=== PATIENT | male | born 1960 | race Caucasian/White ===

== ENCOUNTER 2023-01-08 09:45 | Inpatient (IN) | payer MEDICAID ==
[~2023-01-08] VITALS: Ht 167.6 cm; Wt 36.3 kg
[2023-01-08 09:45] VITALS: BP_SYST 131
[2023-01-08] MEDS ORDERED: NACL 0.9% 1,000 ML IV ONE ×2 (10:00→11:30)
[2023-01-08] MEDS ORDERED: MIRT-114 PO (10:24)
[2023-01-08] MEDS ORDERED: BISA-79 PR (10:24)
[2023-01-08] MEDS ORDERED: MULT-1117 PO (10:24)
[2023-01-08] MEDS ORDERED: ACET325T53 PO (10:24)
[2023-01-08] MEDS ORDERED: HYDR-3917 PO (10:24)
[2023-01-08] MEDS ORDERED: ASCO500T20 PO (10:24)
[2023-01-08] MEDS ORDERED: LACT1TAB14 PO (10:24)
[2023-01-08] MEDS ORDERED: ARGI1POW17 PO (10:24)
[2023-01-08] MEDS ORDERED: ZINC100T2 PO (10:24)
[2023-01-08] MEDS ORDERED: MOM PO (10:24)
[2023-01-08] MEDS ORDERED: ACET325T PO ×2 (10:24)
[2023-01-08] MEDS ORDERED: FLEETMO RC (10:24)
[2023-01-08] MEDS ORDERED: MEGE400O5 PO (10:24)
[2023-01-08] MEDS ORDERED: APIX5TAB4 PO (10:24)
[2023-01-08] MEDS ORDERED: METOPROLOL TARTRATE 5 MG/5 ML VIAL IVP ONE (10:45)
[2023-01-08 10:47] LABS: ANION GAP 23 (5-15); CALCIUM 11.8 mg/dL (8.4-11.0); GLUCOSE 125 mg/dL (70-99)
[2023-01-08 10:56] LABS: BASOPHILS # (AUTO) 0.2 K/uL (0.0-0.2); BASOPHILS % (AUTO) 0.8 % (0.0-2.0); EOSINOPHILS # (AUTO) 0.3 K/uL (0.0-0.4); EOSINOPHILS % (AUTO) 1.2 % (0.0-4.0); HEMATOCRIT 38.7 % (36-54); HEMOGLOBIN 11.2 g/dL (14.0-18.0); LYMPHOCYTES # (AUTO) 6.1 K/uL (1.0-5.5); LYMPHOCYTES % (AUTO) 26.8 % (20.5-51.5); MEAN CORPUSCULAR HEMOGLOBIN 26 pg (27-31); MEAN CORPUSCULAR HGB CONC 29 % (32-36); MEAN CORPUSCULAR VOLUME 90 fL (79.0-98.0); MONOCYTES # (AUTO) 1.1 K/uL (0.0-1.0); NEUTROPHILS # (AUTO) 15.2 K/uL (1.8-7.7); NEUTROPHILS % (AUTO) 66.2 % (40.0-70.0); PLATELET COUNT (AUTO) 407 K/uL (130-430); RED BLOOD CELL COUNT(AUTO) 4.32 MIL/uL (4.2-6.2); RED CELL DISTRIBUTION WIDTH 20.2 % (9.0-15.0); WHITE BLOOD COUNT (AUTO) 22.9 K/uL (4.8-10.8)
[2023-01-08 10:57] LABS: INR 1.2 (0.80-1.20); PROTHROMBIN TIME 12.5 SECS (9.5-12.5)
[2023-01-08 11:00] LABS: CHLORIDE 129 mmol/L (98-107)
[2023-01-08 11:01] LABS: GFR AFRICAN AMERICAN 11 mL/min (>90); UREA NITROGEN, BLOOD 166 mg/dL (8-21)
[2023-01-08 11:07] LABS: ALANINE AMINOTRANSFERASE 21 U/L (12-78); ALBUMIN 3.4 g/dL (3.4-4.8); ASPARTATE AMINOTRANSFERASE 15 U/L (10-37); TOTAL BILIRUBIN 0.4 mg/dL (0.0-1.0)
[2023-01-08] MEDS ORDERED: VANCOMYCIN HCL 1,000 MG in NS 250 ML IV ONE (11:30)
[2023-01-08] MEDS ORDERED: PIPERACILLIN/TAZOBACTAM 2.25 GM in NS 50 ML IV ONE (11:30)
[2023-01-08] MEDS ORDERED: D5/0.45 NS 1,000 ML IV SCH (11:45)
[2023-01-08] MEDS ORDERED: VANCOMYCIN HCL 1000 MG/VIAL IV ONE (11:53)
[2023-01-08] MEDS ORDERED: PIPERACILLIN/TAZOBACTAM 2.25 GM VIAL IV ONE (11:54)
[2023-01-08] MEDS ORDERED: ACETAMINOPHEN 325 MG TABLET PO PRN (13:15)
[2023-01-08] MEDS ORDERED: MINERAL OIL 133 ML ENEMA RC PRN (13:15)
[2023-01-08] MEDS ORDERED: MILK OF MAGNESIA 30 ML UDC PO PRN (13:15)
[2023-01-08] MEDS ORDERED: BISACODYL 5 MG TABLET.DR (DULCOLAX) PO PRN (13:15)
[2023-01-08 17:50] VITALS: BP_SYST 135
[2023-01-08 18:18] VITALS: BP_SYST 135
[2023-01-08] MEDS: cefTRIAXone 1 GM in D5W 50 ML IV SCH (18:22)
[2023-01-08 19:00] VITALS: BP_SYST 122
[2023-01-08 20:00] VITALS: BP_SYST 122
[2023-01-08] MEDS ORDERED: D5W 100 ML IV ONE (20:00)
[2023-01-08] MEDS ORDERED: MEGESTROL ACETATE 400 MG PO SCH (21:00)
[2023-01-08] MEDS: MEGESTROL ACETATE 400 MG/10 ML UDC PO SCH (21:23)
[2023-01-08] MEDS: MIRTAZAPINE 15 MG TABLET PO SCH (21:23)
[2023-01-09] VITALS: BP_SYST 127
[2023-01-09 06:40] LABS: BASOPHILS % (AUTO) 0.2 % (0.0-2.0); EOSINOPHILS # (AUTO) 0.4 K/uL (0.0-0.4); EOSINOPHILS % (AUTO) 2.5 % (0.0-4.0); HEMATOCRIT 31.3 % (36-54); HEMOGLOBIN 9.5 g/dL (14.0-18.0); LYMPHOCYTES # (AUTO) 3.2 K/uL (1.0-5.5); LYMPHOCYTES % (AUTO) 18.4 % (20.5-51.5); MEAN CORPUSCULAR HEMOGLOBIN 27 pg (27-31); MEAN CORPUSCULAR HGB CONC 30 % (32-36); MEAN CORPUSCULAR VOLUME 87 fL (79.0-98.0); MONOCYTES # (AUTO) 0.7 K/uL (0.0-1.0); NEUTROPHILS % (AUTO) 74.9 % (40.0-70.0); PLATELET COUNT (AUTO) 503 K/uL (130-430); RED BLOOD CELL COUNT(AUTO) 3.58 MIL/uL (4.2-6.2); RED CELL DISTRIBUTION WIDTH 19.5 % (9.0-15.0); WHITE BLOOD COUNT (AUTO) 17.3 K/uL (4.8-10.8)
[2023-01-09 06:56] LABS: CALCIUM 9.8 mg/dL (8.4-11.0); CREATININE 6.22 mg/dL (0.55-1.30)
[2023-01-09 08:19] VITALS: BP_SYST 123
[2023-01-09] MEDS ORDERED: NON-FORMULARY MEDICATION (Lactobacillus Acidophilus (Acidophilus) 1 TAB) PO SCH (09:00)
[2023-01-09] MEDS ORDERED: ZINC GLUCONATE PO SCH (09:00)
[2023-01-09] MEDS: MULTIVITAMINS TAB 1 TABLET PO SCH (09:39)
[2023-01-09] MEDS: LACTOBACILLUS RHAMNOSUS GG 1 CAP CAPSULE PO SCH (09:39)
[2023-01-09] MEDS: MEGESTROL ACETATE 400 MG/10 ML UDC PO SCH ×2 (09:39→21:33)
[2023-01-09] MEDS: ASCORBIC ACID 500 MG TABLET PO SCH (09:41)
[2023-01-09] MEDS: D5W 1,000 ML IV SCH ×2 (10:57→21:41)
[2023-01-09 11:30] VITALS: BP_SYST 130
[2023-01-09 15:40] VITALS: BP_SYST 134
[2023-01-09] MEDS: cefTRIAXone 1 GM in D5W 50 ML IV SCH (15:41)
[2023-01-09 20:00] VITALS: BP_SYST 118
[2023-01-09] MEDS: MIRTAZAPINE 15 MG TABLET PO SCH (21:33)
[2023-01-10] VITALS: BP_SYST 143
[2023-01-10] MEDS: D5W 1,000 ML IV SCH ×2 (06:28→16:54)
[2023-01-10 06:58] LABS: BASOPHILS % (AUTO) 0.3 % (0.0-2.0); EOSINOPHILS # (AUTO) 0.4 K/uL (0.0-0.4); EOSINOPHILS % (AUTO) 2.7 % (0.0-4.0); HEMATOCRIT 29.1 % (36-54); HEMOGLOBIN 8.9 g/dL (14.0-18.0); LYMPHOCYTES # (AUTO) 3.6 K/uL (1.0-5.5); MEAN CORPUSCULAR HEMOGLOBIN 26 pg (27-31); MEAN CORPUSCULAR HGB CONC 30 % (32-36); MEAN CORPUSCULAR VOLUME 87 fL (79.0-98.0); MONOCYTES # (AUTO) 0.7 K/uL (0.0-1.0); MONOCYTES % (AUTO) 4.2 % (1.7-9.3); NEUTROPHILS % (AUTO) 69.8 % (40.0-70.0); PLATELET COUNT (AUTO) 459 K/uL (130-430); RED BLOOD CELL COUNT(AUTO) 3.35 MIL/uL (4.2-6.2); RED CELL DISTRIBUTION WIDTH 19.4 % (9.0-15.0); WHITE BLOOD COUNT (AUTO) 15.8 K/uL (4.8-10.8)
[2023-01-10 07:48] LABS: ALBUMIN 2.3 g/dL (3.4-4.8); CALCIUM 9.5 mg/dL (8.4-11.0); CREATININE 5.62 mg/dL (0.55-1.30); TOTAL BILIRUBIN 0.3 mg/dL (0.0-1.0)
[2023-01-10 08:00] VITALS: BP_SYST 141
[2023-01-10 08:03] LABS: TOTAL IRON BIND. CAPACITY 197 ug/dL (250-450)
[2023-01-10] MEDS: MULTIVITAMINS TAB 1 TABLET PO SCH (09:06)
[2023-01-10] MEDS: LACTOBACILLUS RHAMNOSUS GG 1 CAP CAPSULE PO SCH (09:06)
[2023-01-10] MEDS: MEGESTROL ACETATE 400 MG/10 ML UDC PO SCH ×2 (09:07→21:07)
[2023-01-10] MEDS: ASCORBIC ACID 500 MG TABLET PO SCH (09:07)
[2023-01-10 11:50] VITALS: BP_SYST 138
[2023-01-10] MEDS: cefTRIAXone 1 GM in D5W 50 ML IV SCH (14:38)
[2023-01-10 17:13] VITALS: BP_SYST 140
[2023-01-10 19:00] VITALS: BP_SYST 143
[2023-01-10] MEDS: SOD FERRIC GLUC COMPLEX/SUC 125 MG in NS 100 ML IV SCH (19:15)
[2023-01-10 20:00] VITALS: BP_SYST 143
[2023-01-10] MEDS ORDERED: MEGESTROL ACETATE 400 MG/10 ML UDC PO SCH (21:00)
[2023-01-10] MEDS: MIRTAZAPINE 15 MG TABLET PO SCH (21:07)
[2023-01-10] MEDS: MUPIROCIN 2% TOPICAL OINTMENT 22 GM NS SCH (21:07)
[2023-01-11] VITALS: BP_SYST 138
[2023-01-11] MEDS: D5W 1,000 ML IV SCH ×3 (03:46→22:30)
[2023-01-11 07:53] LABS: BASOPHILS % (AUTO) 0.2 % (0.0-2.0); CALCIUM 9.7 mg/dL (8.4-11.0); CREATININE 4.7 mg/dL (0.55-1.30); EOSINOPHILS # (AUTO) 0.2 K/uL (0.0-0.4); EOSINOPHILS % (AUTO) 1.4 % (0.0-4.0); HEMATOCRIT 29.6 % (36-54); LYMPHOCYTES # (AUTO) 2.8 K/uL (1.0-5.5); LYMPHOCYTES % (AUTO) 21.1 % (20.5-51.5); MEAN CORPUSCULAR HEMOGLOBIN 26 pg (27-31); MEAN CORPUSCULAR HGB CONC 30 % (32-36); MEAN CORPUSCULAR VOLUME 87 fL (79.0-98.0); MONOCYTES # (AUTO) 0.6 K/uL (0.0-1.0); MONOCYTES % (AUTO) 4.2 % (1.7-9.3); NEUTROPHILS # (AUTO) 9.7 K/uL (1.8-7.7); NEUTROPHILS % (AUTO) 73.1 % (40.0-70.0); PLATELET COUNT (AUTO) 399 K/uL (130-430); RED BLOOD CELL COUNT(AUTO) 3.42 MIL/uL (4.2-6.2); RED CELL DISTRIBUTION WIDTH 19.3 % (9.0-15.0); WHITE BLOOD COUNT (AUTO) 13.2 K/uL (4.8-10.8)
[2023-01-11 08:00] VITALS: BP_SYST 116
[2023-01-11 08:07] LABS: FOLATE (FOLIC ACID) 6.6 ng/mL (>3.0)
[2023-01-11] MEDS: MUPIROCIN 2% TOPICAL OINTMENT 22 GM NS SCH ×2 (08:32→21:34)
[2023-01-11] MEDS: ASCORBIC ACID 500 MG TABLET PO SCH (08:37)
[2023-01-11] MEDS: MULTIVITAMINS TAB 1 TABLET PO SCH (08:37)
[2023-01-11] MEDS: LACTOBACILLUS RHAMNOSUS GG 1 CAP CAPSULE PO SCH (08:37)
[2023-01-11] MEDS: MEGESTROL ACETATE 400 MG/10 ML UDC PO SCH ×2 (08:38→21:30)
[2023-01-11 11:23] VITALS: BP_SYST 157
[2023-01-11] MEDS: cefTRIAXone 1 GM in D5W 50 ML IV SCH (15:06)
[2023-01-11 15:19] VITALS: BP_SYST 137
[2023-01-11] MEDS: SOD FERRIC GLUC COMPLEX/SUC 125 MG in NS 100 ML IV SCH (18:21)
[2023-01-11 20:00] VITALS: BP_SYST 144
[2023-01-11] MEDS: MIRTAZAPINE 15 MG TABLET PO SCH (21:37)
[2023-01-12 00:07] VITALS: BP_SYST 141
[2023-01-12 07:27] LABS: BASOPHILS % (AUTO) 0.2 % (0.0-2.0); EOSINOPHILS # (AUTO) 0.2 K/uL (0.0-0.4); EOSINOPHILS % (AUTO) 1.4 % (0.0-4.0); HEMATOCRIT 27.3 % (36-54); HEMOGLOBIN 8.8 g/dL (14.0-18.0); LYMPHOCYTES # (AUTO) 2.5 K/uL (1.0-5.5); LYMPHOCYTES % (AUTO) 19.6 % (20.5-51.5); MEAN CORPUSCULAR HEMOGLOBIN 28 pg (27-31); MEAN CORPUSCULAR HGB CONC 32 % (32-36); MEAN CORPUSCULAR VOLUME 85 fL (79.0-98.0); MONOCYTES # (AUTO) 0.6 K/uL (0.0-1.0); MONOCYTES % (AUTO) 4.5 % (1.7-9.3); NEUTROPHILS # (AUTO) 9.3 K/uL (1.8-7.7); NEUTROPHILS % (AUTO) 74.3 % (40.0-70.0); PLATELET COUNT (AUTO) 403 K/uL (130-430); WHITE BLOOD COUNT (AUTO) 12.5 K/uL (4.8-10.8)
[2023-01-12 08:00] VITALS: BP_SYST 134
[2023-01-12 08:13] LABS: CALCIUM 9.2 mg/dL (8.4-11.0); CREATININE 3.92 mg/dL (0.55-1.30)
[2023-01-12] MEDS: D5W 1,000 ML IV SCH ×2 (08:30→17:56)
[2023-01-12] MEDS: MEGESTROL ACETATE 400 MG/10 ML UDC PO SCH ×2 (09:26→22:46)
[2023-01-12] MEDS: MULTIVITAMINS TAB 1 TABLET PO SCH (09:26)
[2023-01-12] MEDS: ASCORBIC ACID 500 MG TABLET PO SCH (09:28)
[2023-01-12] MEDS: LACTOBACILLUS RHAMNOSUS GG 1 CAP CAPSULE PO SCH (09:28)
[2023-01-12] MEDS: MUPIROCIN 2% TOPICAL OINTMENT 22 GM NS SCH ×2 (09:29→23:48)
[2023-01-12 11:20] VITALS: BP_SYST 129
[2023-01-12] MEDS: cefTRIAXone 1 GM in D5W 50 ML IV SCH (14:36)
[2023-01-12 15:34] VITALS: BP_SYST 133
[2023-01-12] MEDS: SOD FERRIC GLUC COMPLEX/SUC 125 MG in NS 100 ML IV SCH (17:56)
[2023-01-12 21:14] VITALS: BP_SYST 116
[2023-01-12] MEDS: MIRTAZAPINE 15 MG TABLET PO SCH (22:45)
[2023-01-13 00:28] VITALS: BP_SYST 125
[2023-01-13] MEDS: D5W 1,000 ML IV SCH ×2 (05:06→18:05)
[2023-01-13 06:54] LABS: BASOPHILS # (AUTO) 0.1 K/uL (0.0-0.2); BASOPHILS % (AUTO) 0.3 % (0.0-2.0); EOSINOPHILS # (AUTO) 0.1 K/uL (0.0-0.4); EOSINOPHILS % (AUTO) 0.5 % (0.0-4.0); HEMATOCRIT 26.6 % (36-54); HEMOGLOBIN 8.3 g/dL (14.0-18.0); LYMPHOCYTES # (AUTO) 3.2 K/uL (1.0-5.5); LYMPHOCYTES % (AUTO) 19.7 % (20.5-51.5); MEAN CORPUSCULAR HEMOGLOBIN 26 pg (27-31); MEAN CORPUSCULAR HGB CONC 31 % (32-36); MEAN CORPUSCULAR VOLUME 84 fL (79.0-98.0); MONOCYTES # (AUTO) 0.7 K/uL (0.0-1.0); MONOCYTES % (AUTO) 4.3 % (1.7-9.3); NEUTROPHILS # (AUTO) 12.3 K/uL (1.8-7.7); NEUTROPHILS % (AUTO) 75.2 % (40.0-70.0); PLATELET COUNT (AUTO) 434 K/uL (130-430); RED BLOOD CELL COUNT(AUTO) 3.16 MIL/uL (4.2-6.2); RED CELL DISTRIBUTION WIDTH 19.2 % (9.0-15.0); WHITE BLOOD COUNT (AUTO) 16.4 K/uL (4.8-10.8)
[2023-01-13 07:13] LABS: CALCIUM 8.8 mg/dL (8.4-11.0); CREATININE 3.99 mg/dL (0.55-1.30)
[2023-01-13] MEDS: LACTOBACILLUS RHAMNOSUS GG 1 CAP CAPSULE PO SCH (08:34)
[2023-01-13] MEDS: MEGESTROL ACETATE 400 MG/10 ML UDC PO SCH ×2 (08:34→20:42)
[2023-01-13] MEDS: ASCORBIC ACID 500 MG TABLET PO SCH (08:35)
[2023-01-13] MEDS: MULTIVITAMINS TAB 1 TABLET PO SCH (08:35)
[2023-01-13] MEDS: MUPIROCIN 2% TOPICAL OINTMENT 22 GM NS SCH ×2 (08:36→20:44)
[2023-01-13] MEDS ORDERED: POTASSIUM CHLORIDE 20 MEQ TAB.PRT.SR PO ONE (11:15)
[2023-01-13 11:20] VITALS: BP_SYST 149
[2023-01-13 15:36] VITALS: BP_SYST 136
[2023-01-13] MEDS: cefTRIAXone 1 GM in D5W 50 ML IV SCH (17:08)
[2023-01-13] MEDS: SOD FERRIC GLUC COMPLEX/SUC 125 MG in NS 100 ML IV SCH (18:17)
[2023-01-13 20:05] VITALS: BP_SYST 146
[2023-01-13] MEDS: MIRTAZAPINE 15 MG TABLET PO SCH (20:43)
[2023-01-14 00:40] VITALS: BP_SYST 127
[2023-01-14 07:03] LABS: CALCIUM 8.9 mg/dL (8.4-11.0); CREATININE 3.84 mg/dL (0.55-1.30)
[2023-01-14 07:13] LABS: BASOPHILS % (AUTO) 0.1 % (0.0-2.0); EOSINOPHILS # (AUTO) 0.1 K/uL (0.0-0.4); EOSINOPHILS % (AUTO) 0.6 % (0.0-4.0); LYMPHOCYTES # (AUTO) 2.9 K/uL (1.0-5.5); LYMPHOCYTES % (AUTO) 16.9 % (20.5-51.5); MEAN CORPUSCULAR HEMOGLOBIN 27 pg (27-31); MEAN CORPUSCULAR HGB CONC 32 % (32-36); MEAN CORPUSCULAR VOLUME 85 fL (79.0-98.0); MONOCYTES # (AUTO) 0.5 K/uL (0.0-1.0); MONOCYTES % (AUTO) 2.9 % (1.7-9.3); NEUTROPHILS # (AUTO) 13.4 K/uL (1.8-7.7); NEUTROPHILS % (AUTO) 79.5 % (40.0-70.0); PLATELET COUNT (AUTO) 437 K/uL (130-430); RED BLOOD CELL COUNT(AUTO) 2.94 MIL/uL (4.2-6.2); RED CELL DISTRIBUTION WIDTH 19.3 % (9.0-15.0); WHITE BLOOD COUNT (AUTO) 16.9 K/uL (4.8-10.8)
[2023-01-14 08:00] VITALS: BP_SYST 124
[2023-01-14] MEDS: LACTOBACILLUS RHAMNOSUS GG 1 CAP CAPSULE PO SCH (08:43)
[2023-01-14] MEDS: ASCORBIC ACID 500 MG TABLET PO SCH (08:43)
[2023-01-14] MEDS: MEGESTROL ACETATE 400 MG/10 ML UDC PO SCH ×2 (08:44→21:30)
[2023-01-14] MEDS: MULTIVITAMINS TAB 1 TABLET PO SCH (08:44)
[2023-01-14] MEDS: MUPIROCIN 2% TOPICAL OINTMENT 22 GM NS SCH ×2 (09:00→21:30)
[2023-01-14 11:20] VITALS: BP_SYST 136
[2023-01-14 15:18] VITALS: BP_SYST 136
[2023-01-14] MEDS: cefTRIAXone 1 GM in D5W 50 ML IV SCH (15:21)
[2023-01-14] MEDS ORDERED: KCL 20 mEq in 100 mL (PREMIX) 100 ML IV SCH (16:30)
[2023-01-14] MEDS: SOD FERRIC GLUC COMPLEX/SUC 125 MG in NS 100 ML IV SCH (17:16)
[2023-01-14] MEDS: D5W 1,000 ML IV SCH (17:17)
[2023-01-14 19:00] VITALS: BP_SYST 126
[2023-01-14] MEDS ORDERED: POTASSIUM CHLORIDE 40 MEQ, LIDOCAINE JECT 2% PF 100 MG 50 MG in NS 250 ML IV ONE (19:00)
[2023-01-14 20:00] VITALS: BP_SYST 126
[2023-01-14] MEDS: MIRTAZAPINE 15 MG TABLET PO SCH (21:31)
[2023-01-15 00:48] VITALS: BP_SYST 128
[2023-01-15 07:02] LABS: CALCIUM 9.2 mg/dL (8.4-11.0); CREATININE 3.6 mg/dL (0.55-1.30)
[2023-01-15 07:04] LABS: BASOPHILS % (AUTO) 0.4 % (0.0-2.0); EOSINOPHILS # (AUTO) 0.2 K/uL (0.0-0.4); EOSINOPHILS % (AUTO) 1.4 % (0.0-4.0); HEMATOCRIT 25.4 % (36-54); HEMOGLOBIN 7.9 g/dL (14.0-18.0); LYMPHOCYTES # (AUTO) 2.5 K/uL (1.0-5.5); LYMPHOCYTES % (AUTO) 17.8 % (20.5-51.5); MEAN CORPUSCULAR HEMOGLOBIN 27 pg (27-31); MEAN CORPUSCULAR HGB CONC 31 % (32-36); MEAN CORPUSCULAR VOLUME 86 fL (79.0-98.0); MONOCYTES # (AUTO) 0.6 K/uL (0.0-1.0); MONOCYTES % (AUTO) 4.3 % (1.7-9.3); NEUTROPHILS # (AUTO) 10.6 K/uL (1.8-7.7); NEUTROPHILS % (AUTO) 76.1 % (40.0-70.0); PLATELET COUNT (AUTO) 471 K/uL (130-430); RED BLOOD CELL COUNT(AUTO) 2.95 MIL/uL (4.2-6.2); RED CELL DISTRIBUTION WIDTH 20.1 % (9.0-15.0); WHITE BLOOD COUNT (AUTO) 13.9 K/uL (4.8-10.8)
[2023-01-15 08:00] VITALS: BP_SYST 135
[2023-01-15] MEDS: MEGESTROL ACETATE 400 MG/10 ML UDC PO SCH ×2 (10:21→21:16)
[2023-01-15] MEDS: ASCORBIC ACID 500 MG TABLET PO SCH (10:21)
[2023-01-15] MEDS: MULTIVITAMINS TAB 1 TABLET PO SCH (10:22)
[2023-01-15] MEDS: LACTOBACILLUS RHAMNOSUS GG 1 CAP CAPSULE PO SCH (10:22)
[2023-01-15] MEDS: D5W 1,000 ML IV SCH ×2 (10:31→20:50)
[2023-01-15] MEDS: MUPIROCIN 2% TOPICAL OINTMENT 22 GM NS SCH (10:32)
[2023-01-15 11:21] VITALS: BP_SYST 140
[2023-01-15 15:25] VITALS: BP_SYST 137
[2023-01-15] MEDS: SOD FERRIC GLUC COMPLEX/SUC 125 MG in NS 100 ML IV SCH (18:55)
[2023-01-15 20:00] VITALS: BP_SYST 142
[2023-01-15] MEDS: MIRTAZAPINE 15 MG TABLET PO SCH (21:16)
[2023-01-16 07:15] LABS: INR 1.1 (0.80-1.20); PROTHROMBIN TIME 10.8 SECS (9.5-12.5)
[2023-01-16 07:18] LABS: BASOPHILS % (AUTO) 0.3 % (0.0-2.0); EOSINOPHILS # (AUTO) 0.2 K/uL (0.0-0.4); EOSINOPHILS % (AUTO) 1.2 % (0.0-4.0); HEMOGLOBIN 8.9 g/dL (14.0-18.0); LYMPHOCYTES # (AUTO) 2.1 K/uL (1.0-5.5); LYMPHOCYTES % (AUTO) 15.1 % (20.5-51.5); MEAN CORPUSCULAR HEMOGLOBIN 27 pg (27-31); MEAN CORPUSCULAR HGB CONC 31 % (32-36); MEAN CORPUSCULAR VOLUME 87 fL (79.0-98.0); MONOCYTES # (AUTO) 0.6 K/uL (0.0-1.0); MONOCYTES % (AUTO) 4.6 % (1.7-9.3); NEUTROPHILS % (AUTO) 78.8 % (40.0-70.0); PLATELET COUNT (AUTO) 527 K/uL (130-430); RED BLOOD CELL COUNT(AUTO) 3.33 MIL/uL (4.2-6.2); RED CELL DISTRIBUTION WIDTH 20.5 % (9.0-15.0)
[2023-01-16 07:55] LABS: CALCIUM 9.4 mg/dL (8.4-11.0); CREATININE 2.9 mg/dL (0.55-1.30)
[2023-01-16 08:00] VITALS: BP_SYST 156
[2023-01-16] MEDS: MULTIVITAMINS TAB 1 TABLET PO SCH (08:32)
[2023-01-16] MEDS: MEGESTROL ACETATE 400 MG/10 ML UDC PO SCH ×2 (08:32→21:00)
[2023-01-16] MEDS: ASCORBIC ACID 500 MG TABLET PO SCH (08:32)
[2023-01-16] MEDS: LACTOBACILLUS RHAMNOSUS GG 1 CAP CAPSULE PO SCH (08:32)
[2023-01-16] MEDS: BALSAM PERU/CASTOR OIL 56.7 GM OINT...G. TP SCH (09:00)
[2023-01-16] MEDS ORDERED: CEFAZOLIN 1 GM IVPB PREMIX 50 ML IV ONE (10:00)
[2023-01-16] MEDS: D5W 1,000 ML IV SCH ×2 (11:10→22:53)
[2023-01-16 11:21] VITALS: BP_SYST 127
[2023-01-16] MEDS ORDERED: MEPERIDINE 50 MG/ML VIAL ONE (11:51)
[2023-01-16] MEDS ORDERED: MIDAZOLAM HCL 5 MG/5 ML VIAL ONE (11:51)
[2023-01-16 15:23] VITALS: BP_SYST 137
[2023-01-16] MEDS: SOD FERRIC GLUC COMPLEX/SUC 125 MG in NS 100 ML IV SCH (18:06)
[2023-01-16 20:00] VITALS: BP_SYST 134
[2023-01-16] MEDS: MIRTAZAPINE 15 MG TABLET PO SCH (21:00)
[2023-01-17 01:23] VITALS: BP_SYST 128
[2023-01-17 08:00] VITALS: BP_SYST 150
[2023-01-17] MEDS: BALSAM PERU/CASTOR OIL 56.7 GM OINT...G. TP SCH (09:43)
[2023-01-17] MEDS: MEGESTROL ACETATE 400 MG/10 ML UDC PO SCH ×2 (09:50→21:35)
[2023-01-17] MEDS: ASCORBIC ACID 500 MG TABLET PO SCH (09:51)
[2023-01-17] MEDS: MULTIVITAMINS TAB 1 TABLET PO SCH (09:51)
[2023-01-17] MEDS: LACTOBACILLUS RHAMNOSUS GG 1 CAP CAPSULE PO SCH (09:51)
[2023-01-17 10:54] LABS: BASOPHILS % (AUTO) 0.4 % (0.0-2.0); EOSINOPHILS # (AUTO) 0.2 K/uL (0.0-0.4); EOSINOPHILS % (AUTO) 1.7 % (0.0-4.0); HEMATOCRIT 30.2 % (36-54); HEMOGLOBIN 9.4 g/dL (14.0-18.0); LYMPHOCYTES # (AUTO) 2.4 K/uL (1.0-5.5); LYMPHOCYTES % (AUTO) 18.6 % (20.5-51.5); MEAN CORPUSCULAR HEMOGLOBIN 27 pg (27-31); MEAN CORPUSCULAR HGB CONC 31 % (32-36); MEAN CORPUSCULAR VOLUME 87 fL (79.0-98.0); MONOCYTES # (AUTO) 0.6 K/uL (0.0-1.0); MONOCYTES % (AUTO) 4.9 % (1.7-9.3); NEUTROPHILS # (AUTO) 9.6 K/uL (1.8-7.7); NEUTROPHILS % (AUTO) 74.4 % (40.0-70.0); PLATELET COUNT (AUTO) 573 K/uL (130-430); RED BLOOD CELL COUNT(AUTO) 3.49 MIL/uL (4.2-6.2); RED CELL DISTRIBUTION WIDTH 20.9 % (9.0-15.0); WHITE BLOOD COUNT (AUTO) 12.9 K/uL (4.8-10.8)
[2023-01-17 11:09] LABS: CALCIUM 9.5 mg/dL (8.4-11.0); CREATININE 2.55 mg/dL (0.55-1.30)
[2023-01-17 11:22] VITALS: BP_SYST 143
[2023-01-17] MEDS: D5W 1,000 ML IV SCH ×2 (12:50→21:35)
[2023-01-17 15:33] VITALS: BP_SYST 139
[2023-01-17] MEDS: SOD FERRIC GLUC COMPLEX/SUC 125 MG in NS 100 ML IV SCH (18:20)
[2023-01-17 20:00] VITALS: BP_SYST 144
[2023-01-17] MEDS: MIRTAZAPINE 15 MG TABLET PO SCH (21:35)
[2023-01-17 23:05] VITALS: BP_SYST 144
[2023-01-18 01:44] VITALS: BP_SYST 136
[2023-01-18 06:07] LABS: BASOPHILS % (AUTO) 0.2 % (0.0-2.0); EOSINOPHILS # (AUTO) 0.3 K/uL (0.0-0.4); EOSINOPHILS % (AUTO) 1.9 % (0.0-4.0); HEMATOCRIT 27.4 % (36-54); HEMOGLOBIN 8.7 g/dL (14.0-18.0); LYMPHOCYTES % (AUTO) 20.6 % (20.5-51.5); MEAN CORPUSCULAR HEMOGLOBIN 27 pg (27-31); MEAN CORPUSCULAR HGB CONC 32 % (32-36); MEAN CORPUSCULAR VOLUME 86 fL (79.0-98.0); MONOCYTES # (AUTO) 0.8 K/uL (0.0-1.0); MONOCYTES % (AUTO) 5.8 % (1.7-9.3); NEUTROPHILS # (AUTO) 10.3 K/uL (1.8-7.7); NEUTROPHILS % (AUTO) 71.5 % (40.0-70.0); PLATELET COUNT (AUTO) 615 K/uL (130-430); RED CELL DISTRIBUTION WIDTH 20.7 % (9.0-15.0); WHITE BLOOD COUNT (AUTO) 14.5 K/uL (4.8-10.8)
[2023-01-18 06:27] LABS: CALCIUM 8.9 mg/dL (8.4-11.0); CREATININE 2.37 mg/dL (0.55-1.30)
[2023-01-18 11:00] VITALS: BP_SYST 122
[2023-01-18] MEDS: LACTOBACILLUS RHAMNOSUS GG 1 CAP CAPSULE PO SCH (11:14)
[2023-01-18] MEDS: MEGESTROL ACETATE 400 MG/10 ML UDC PO SCH ×2 (11:15→21:30)
[2023-01-18] MEDS: ASCORBIC ACID 500 MG TABLET PO SCH (11:15)
[2023-01-18] MEDS: MULTIVITAMINS TAB 1 TABLET PO SCH (11:16)
[2023-01-18] MEDS: BALSAM PERU/CASTOR OIL 56.7 GM OINT...G. TP SCH (11:17)
[2023-01-18] MEDS: D5W 1,000 ML IV SCH (15:36)
[2023-01-18 18:41] VITALS: BP_SYST 142
[2023-01-18] MEDS ORDERED: POTASSIUM CHLORIDE 20 MEQ TAB.PRT.SR PO ONE (19:00)
[2023-01-18 19:44] VITALS: BP_SYST 153
[2023-01-18] MEDS: MIRTAZAPINE 15 MG TABLET PO SCH (21:29)
[2023-01-19 00:47] VITALS: BP_SYST 161
[2023-01-19] MEDS: D5W 1,000 ML IV SCH ×2 (06:04→18:42)
[2023-01-19 08:00] LABS: BASOPHILS # (AUTO) 0.1 K/uL (0.0-0.2); BASOPHILS % (AUTO) 0.4 % (0.0-2.0); EOSINOPHILS # (AUTO) 0.3 K/uL (0.0-0.4); HEMATOCRIT 25.9 % (36-54); HEMOGLOBIN 8.3 g/dL (14.0-18.0); LYMPHOCYTES # (AUTO) 2.9 K/uL (1.0-5.5); LYMPHOCYTES % (AUTO) 18.4 % (20.5-51.5); MEAN CORPUSCULAR HEMOGLOBIN 28 pg (27-31); MEAN CORPUSCULAR HGB CONC 32 % (32-36); MEAN CORPUSCULAR VOLUME 86 fL (79.0-98.0); MONOCYTES # (AUTO) 0.7 K/uL (0.0-1.0); MONOCYTES % (AUTO) 4.3 % (1.7-9.3); NEUTROPHILS # (AUTO) 11.7 K/uL (1.8-7.7); NEUTROPHILS % (AUTO) 74.9 % (40.0-70.0); PLATELET COUNT (AUTO) 613 K/uL (130-430); RED BLOOD CELL COUNT(AUTO) 3.01 MIL/uL (4.2-6.2); RED CELL DISTRIBUTION WIDTH 21.9 % (9.0-15.0); WHITE BLOOD COUNT (AUTO) 15.6 K/uL (4.8-10.8)
[2023-01-19 08:07] LABS: CALCIUM 8.9 mg/dL (8.4-11.0); CREATININE 2.19 mg/dL (0.55-1.30)
[2023-01-19 08:24] VITALS: BP_SYST 138
[2023-01-19] MEDS: MEGESTROL ACETATE 400 MG/10 ML UDC PO SCH ×2 (09:50→22:03)
[2023-01-19] MEDS: ASCORBIC ACID 500 MG TABLET PO SCH (09:50)
[2023-01-19] MEDS: MULTIVITAMINS TAB 1 TABLET PO SCH (09:51)
[2023-01-19] MEDS: LACTOBACILLUS RHAMNOSUS GG 1 CAP CAPSULE PO SCH (09:51)
[2023-01-19] MEDS: BALSAM PERU/CASTOR OIL 56.7 GM OINT...G. TP SCH (10:00)
[2023-01-19] MEDS ORDERED: POTASSIUM CHLORIDE 20 MEQ/PKT PACKET GT ONE (14:00)
[2023-01-19 16:45] VITALS: BP_SYST 128
[2023-01-19 19:00] VITALS: BP_SYST 133
[2023-01-19 20:00] VITALS: BP_SYST 133
[2023-01-19] MEDS: MIRTAZAPINE 15 MG TABLET PO SCH (22:04)
[2023-01-20 03:43] VITALS: BP_SYST 141
[2023-01-20] MEDS: D5W 1,000 ML IV SCH ×2 (07:30→21:07)
[2023-01-20] MEDS: LACTOBACILLUS RHAMNOSUS GG 1 CAP CAPSULE PO SCH (10:07)
[2023-01-20] MEDS: MEGESTROL ACETATE 400 MG/10 ML UDC PO SCH ×2 (10:07→21:07)
[2023-01-20] MEDS: MULTIVITAMINS TAB 1 TABLET PO SCH (10:07)
[2023-01-20] MEDS: ASCORBIC ACID 500 MG TABLET PO SCH (10:08)
[2023-01-20] MEDS: BALSAM PERU/CASTOR OIL 56.7 GM OINT...G. TP SCH (10:09)
[2023-01-20 11:18] VITALS: BP_SYST 128
[2023-01-20 15:22] VITALS: BP_SYST 121
[2023-01-20 20:00] VITALS: BP_SYST 131
[2023-01-20] MEDS: MIRTAZAPINE 15 MG TABLET PO SCH (21:07)
[2023-01-21 01:56] VITALS: BP_SYST 135
[2023-01-21 07:34] LABS: ALBUMIN 2.1 g/dL (3.4-4.8); CREATININE 1.99 mg/dL (0.55-1.30); TOTAL BILIRUBIN 0.2 mg/dL (0.0-1.0)
[2023-01-21 08:16] LABS: BASOPHILS # (AUTO) 0.1 K/uL (0.0-0.2); BASOPHILS % (AUTO) 0.3 % (0.0-2.0); EOSINOPHILS # (AUTO) 0.2 K/uL (0.0-0.4); EOSINOPHILS % (AUTO) 1.1 % (0.0-4.0); HEMATOCRIT 26.5 % (36-54); HEMOGLOBIN 8.5 g/dL (14.0-18.0); LYMPHOCYTES # (AUTO) 2.7 K/uL (1.0-5.5); LYMPHOCYTES % (AUTO) 16.9 % (20.5-51.5); MEAN CORPUSCULAR HEMOGLOBIN 27 pg (27-31); MEAN CORPUSCULAR HGB CONC 32 % (32-36); MEAN CORPUSCULAR VOLUME 86 fL (79.0-98.0); MONOCYTES # (AUTO) 0.9 K/uL (0.0-1.0); MONOCYTES % (AUTO) 5.6 % (1.7-9.3); NEUTROPHILS # (AUTO) 12.2 K/uL (1.8-7.7); NEUTROPHILS % (AUTO) 76.1 % (40.0-70.0); PLATELET COUNT (AUTO) 657 K/uL (130-430); RED BLOOD CELL COUNT(AUTO) 3.08 MIL/uL (4.2-6.2); RED CELL DISTRIBUTION WIDTH 21.4 % (9.0-15.0)
[2023-01-21] MEDS: ASCORBIC ACID 500 MG TABLET PO SCH (10:05)
[2023-01-21] MEDS: BALSAM PERU/CASTOR OIL 56.7 GM OINT...G. TP SCH (10:05)
[2023-01-21] MEDS: MULTIVITAMINS TAB 1 TABLET PO SCH (10:05)
[2023-01-21] MEDS: MEGESTROL ACETATE 400 MG/10 ML UDC PO SCH ×2 (10:05→22:12)
[2023-01-21] MEDS: LACTOBACILLUS RHAMNOSUS GG 1 CAP CAPSULE PO SCH (10:05)
[2023-01-21] MEDS: D5W 1,000 ML IV SCH ×2 (10:10→22:12)
[2023-01-21 11:20] VITALS: BP_SYST 142
[2023-01-21] MEDS ORDERED: KCL 40 mEq in 100 mL (PREMIX) 100 ML IV ONE (13:30)
[2023-01-21] MEDS: POTASSIUM CHLORIDE 20 mEq in 100 mL (PREMIX) 100 ML x 2 doses IV SCH ×2 (14:58→17:43)
[2023-01-21 15:50] VITALS: BP_SYST 136
[2023-01-21 20:30] VITALS: BP_SYST 126
[2023-01-21] MEDS: MIRTAZAPINE 15 MG TABLET PO SCH (22:12)
[2023-01-22] VITALS: BP_SYST 91
[2023-01-22 05:24] LABS: BASOPHILS # (AUTO) 0.1 K/uL (0.0-0.2); BASOPHILS % (AUTO) 0.6 % (0.0-2.0); EOSINOPHILS % (AUTO) 0.3 % (0.0-4.0); HEMOGLOBIN 8.9 g/dL (14.0-18.0); LYMPHOCYTES # (AUTO) 2.1 K/uL (1.0-5.5); LYMPHOCYTES % (AUTO) 13.5 % (20.5-51.5); MEAN CORPUSCULAR HEMOGLOBIN 27 pg (27-31); MEAN CORPUSCULAR HGB CONC 32 % (32-36); MEAN CORPUSCULAR VOLUME 85 fL (79.0-98.0); MONOCYTES # (AUTO) 0.7 K/uL (0.0-1.0); MONOCYTES % (AUTO) 4.6 % (1.7-9.3); NEUTROPHILS # (AUTO) 12.6 K/uL (1.8-7.7); PLATELET COUNT (AUTO) 619 K/uL (130-430); RED BLOOD CELL COUNT(AUTO) 3.28 MIL/uL (4.2-6.2); RED CELL DISTRIBUTION WIDTH 21.1 % (9.0-15.0); WHITE BLOOD COUNT (AUTO) 15.6 K/uL (4.8-10.8)
[2023-01-22 06:01] LABS: CALCIUM 8.8 mg/dL (8.4-11.0); CREATININE 2.28 mg/dL (0.55-1.30)
[2023-01-22] MEDS: MEGESTROL ACETATE 400 MG/10 ML UDC PO SCH ×2 (09:00→22:06)
[2023-01-22] MEDS: BALSAM PERU/CASTOR OIL 56.7 GM OINT...G. TP SCH (09:01)
[2023-01-22] MEDS: MULTIVITAMINS TAB 1 TABLET PO SCH (09:01)
[2023-01-22] MEDS: LACTOBACILLUS RHAMNOSUS GG 1 CAP CAPSULE PO SCH (09:01)
[2023-01-22] MEDS: ASCORBIC ACID 500 MG TABLET PO SCH (09:01)
[2023-01-22 11:21] VITALS: BP_SYST 124
[2023-01-22 14:59] VITALS: BP_SYST 121
[2023-01-22 20:40] VITALS: BP_SYST 141
[2023-01-22] MEDS: MIRTAZAPINE 15 MG TABLET PO SCH (22:06)
[2023-01-23] VITALS: BP_SYST 133
[2023-01-23 08:14] VITALS: BP_SYST 140
[2023-01-23] MEDS: ASCORBIC ACID 500 MG TABLET PO SCH (08:45)
[2023-01-23] MEDS: MEGESTROL ACETATE 400 MG/10 ML UDC PO SCH ×2 (08:45→21:31)
[2023-01-23] MEDS: LACTOBACILLUS RHAMNOSUS GG 1 CAP CAPSULE PO SCH (08:45)
[2023-01-23] MEDS: BALSAM PERU/CASTOR OIL 56.7 GM OINT...G. TP SCH (08:46)
[2023-01-23] MEDS: MULTIVITAMINS TAB 1 TABLET PO SCH (08:46)
[2023-01-23 11:54] VITALS: BP_SYST 126
[2023-01-23 14:01] LABS: BASOPHILS % (AUTO) 0.3 % (0.0-2.0); EOSINOPHILS # (AUTO) 0.1 K/uL (0.0-0.4); EOSINOPHILS % (AUTO) 0.7 % (0.0-4.0); HEMATOCRIT 27.2 % (36-54); HEMOGLOBIN 8.7 g/dL (14.0-18.0); LYMPHOCYTES # (AUTO) 2.3 K/uL (1.0-5.5); LYMPHOCYTES % (AUTO) 14.3 % (20.5-51.5); MEAN CORPUSCULAR HEMOGLOBIN 27 pg (27-31); MEAN CORPUSCULAR HGB CONC 32 % (32-36); MEAN CORPUSCULAR VOLUME 84 fL (79.0-98.0); MONOCYTES # (AUTO) 0.7 K/uL (0.0-1.0); MONOCYTES % (AUTO) 4.4 % (1.7-9.3); NEUTROPHILS # (AUTO) 12.8 K/uL (1.8-7.7); NEUTROPHILS % (AUTO) 80.3 % (40.0-70.0); PLATELET COUNT (AUTO) 564 K/uL (130-430); RED BLOOD CELL COUNT(AUTO) 3.22 MIL/uL (4.2-6.2); RED CELL DISTRIBUTION WIDTH 20.4 % (9.0-15.0); WHITE BLOOD COUNT (AUTO) 15.9 K/uL (4.8-10.8)
[2023-01-23 14:08] LABS: CALCIUM 8.8 mg/dL (8.4-11.0); CREATININE 2.53 mg/dL (0.55-1.30); TOTAL BILIRUBIN 0.2 mg/dL (0.0-1.0)
[2023-01-23 16:31] VITALS: BP_SYST 113
[2023-01-23] MEDS ORDERED: CARV12.548 PO (20:18)
[2023-01-23] MEDS ORDERED: BENA-6 PO (20:21)
[2023-01-23] MEDS ORDERED: SIMV5TAB59 PO (20:21)
[2023-01-23] MEDS: MIRTAZAPINE 15 MG TABLET PO SCH (21:32)
[2023-01-23 22:41] VITALS: BP_SYST 119
[2023-01-24 00:33] VITALS: BP_SYST 118
[2023-01-24 05:46] VITALS: BP_SYST 120
[2023-01-24 08:00] VITALS: BP_SYST 130
[2023-01-24] MEDS: ASCORBIC ACID 500 MG TABLET PO SCH (09:24)
[2023-01-24] MEDS: MULTIVITAMINS TAB 1 TABLET PO SCH (09:24)
[2023-01-24] MEDS: MEGESTROL ACETATE 400 MG/10 ML UDC PO SCH (09:24)
[2023-01-24] MEDS: LACTOBACILLUS RHAMNOSUS GG 1 CAP CAPSULE PO SCH (09:24)
[2023-01-24] MEDS: BALSAM PERU/CASTOR OIL 56.7 GM OINT...G. TP SCH (10:14)
[2023-01-24 11:34] VITALS: BP_SYST 123
[2023-01-24 16:33] VITALS: BP_SYST 135
[2023-01-24 17:18] VITALS: BP_SYST 133
== END 2023-01-24 17:51 | DRG 720 ==
LOC: SED 09:45 → STU 11:39 → SMU 01-14 15:57
PROVIDERS: ADMIT Family Medicine; ATTEND Family Medicine
PROC: 0DH63UZ Insertion of Feeding Device into Stomach, Percutaneous Approach (ICD-10-PCS; principal; 2023-01-16 13:30)
PROC: 0DB58ZX Excision of Esophagus, Via Natural or Artificial Opening Endoscopic, Diagnostic (ICD-10-PCS; 2023-01-16 13:30)
DX: A41.9 Sepsis, unspecified organism (principal); N17.0 Acute kidney failure with tubular necrosis; G93.41 Metabolic encephalopathy; E43 Unspecified severe protein-calorie malnutrition; E87.20 Acidosis, unspecified; E87.0 Hyperosmolality and hypernatremia; E11.52 Type 2 diabetes mellitus with diabetic peripheral angiopathy with gangrene; E86.0 Dehydration; D50.9 Iron deficiency anemia, unspecified; N39.0 Urinary tract infection, site not specified; R13.10 Dysphagia, unspecified; F32.A Depression, unspecified; E83.52 Hypercalcemia; F03.90 Unspecified dementia, unspecified severity, without behavioral disturbance, psychotic disturbance, mood disturbance, and anxiety; K44.9 Diaphragmatic hernia without obstruction or gangrene; K29.70 Gastritis, unspecified, without bleeding; K20.90 Esophagitis, unspecified without bleeding; I10 Essential (primary) hypertension; L97.909 Non-pressure chronic ulcer of unspecified part of unspecified lower leg with unspecified severity; Z20.822 Contact with and (suspected) exposure to COVID-19; Z86.73 Personal history of transient ischemic attack (TIA), and cerebral infarction without residual deficits; Z68.1 Body mass index [BMI] 19.9 or less, adult
CPT/HCPCS: 36415; 43239; 43246; 71045; 76376; 80048; 80053; 82550; 82607; 82728; 82746; 83540; 83550; 83605; 83735; 84484; 85025; 85610-TC; 85730-TC; 87040; 87081; 88305; 88313; 93005; 96365; 96367; 96375; 99291; G0378; J0690; J0696; J2175; J2250; J2543; J2916; J3370; J3480; J3490; J7050; J7060

== ENCOUNTER 2023-03-03 08:52 | Inpatient (IN) | payer MEDICAID ==
[~2023-03-03] VITALS: Ht 160 cm; Wt 52.6 kg
[2023-03-03 08:52] VITALS: BP_SYST 137
[~2023-03-03 08:52] MED LIST: ACET325T PO; ACET325T53 PO; APIX5TAB4 PO; ARGI1POW17 PO; ASCO500T20 PO; BENA-6 PO; BISA-79 PR; CARV12.548 PO; FLEETMO RC; HYDR-3917 PO; LACT1TAB14 PO; MIRT-114 PO; MOM PO; MULT-1117 PO; SIMV5TAB59 PO; ZINC100T2 PO
[2023-03-03] MEDS ORDERED: NACL 0.9% 1,000 ML IV ONE ×2 (09:30→11:15)
[2023-03-03 10:38] LABS: INR 1.2 (0.80-1.20); PROTHROMBIN TIME 11.9 SECS (9.5-12.5)
[2023-03-03 10:40] LABS: BASOPHILS % (AUTO) 0.2 % (0.0-2.0); EOSINOPHILS # (AUTO) 0.4 K/uL (0.0-0.4); EOSINOPHILS % (AUTO) 2.1 % (0.0-4.0); HEMATOCRIT 23.8 % (36-54); HEMOGLOBIN 7.5 g/dL (14.0-18.0); LYMPHOCYTES # (AUTO) 2.8 K/uL (1.0-5.5); LYMPHOCYTES % (AUTO) 15.2 % (20.5-51.5); MEAN CORPUSCULAR HEMOGLOBIN 28 pg (27-31); MEAN CORPUSCULAR HGB CONC 32 % (32-36); MEAN CORPUSCULAR VOLUME 88 fL (79.0-98.0); MONOCYTES # (AUTO) 0.7 K/uL (0.0-1.0); MONOCYTES % (AUTO) 4.1 % (1.7-9.3); NEUTROPHILS # (AUTO) 14.3 K/uL (1.8-7.7); NEUTROPHILS % (AUTO) 78.4 % (40.0-70.0); RED CELL DISTRIBUTION WIDTH 18.5 % (9.0-15.0); WHITE BLOOD COUNT (AUTO) 18.2 K/uL (4.8-10.8)
[2023-03-03 10:45] LABS: ALBUMIN 1.8 g/dL (3.4-4.8); CALCIUM 9.2 mg/dL (8.4-11.0); CREATININE 3.88 mg/dL (0.55-1.30); TOTAL BILIRUBIN 0.3 mg/dL (0.0-1.0)
[2023-03-03 10:50] LABS: PLATELET COUNT (AUTO) 751 K/uL (130-430)
[2023-03-03 10:57] LABS: BILIRUBIN,URINE NEGATIVE (NEGATIVE); BLOOD, URINE 3+ (NEGATIVE); CLARITY/URINE CLOUDY (CLEAR); COLOR,URINE YELLOW (YELLOW); GLUCOSE,URINE NEGATIVE (NEGATIVE); KETONES,URINE NEGATIVE (NEGATIVE); LEUKOCYTE ESTERASE ,URINE 3+ (NEGATIVE); NITRITE, URINE NEGATIVE (NEGATIVE); PH,URINE 6.5 (5.0-8.0); PROTEIN URINE 1+ (NEGATIVE); UROBILINOGEN,URINE 0.2 (0.2-1.0)
[2023-03-03 11:12] LABS: RBC,URINE 50-80 /HPF (0-3)
[2023-03-03 11:13] LABS: BACTERIA,URINE MODERATE /HPF (None Seen); WBC,URINE >100 /HPF (0-3)
[2023-03-03] MEDS ORDERED: VANCOMYCIN HCL 1,000 MG in NS 250 ML IV ONE (11:15)
[2023-03-03] MEDS ORDERED: PIPERACILLIN/TAZO 3.375 GM in NS 50 ML IV ONE (11:15)
[2023-03-03] MEDS ORDERED: VANCOMYCIN HCL 1000 MG/VIAL IV ONE (12:00)
[2023-03-03] MEDS ORDERED: PIPERACILLIN/TAZOBACTAM 3.375 GM/VIAL (ZOSYN) IV ONE (12:00)
[2023-03-03] MEDS ORDERED: COLL30OI2 TP (12:41)
[2023-03-03] MEDS ORDERED: LACT414L5 GT (12:41)
[2023-03-03] MEDS ORDERED: MINERAL OIL 133 ML ENEMA RC PRN (14:15)
[2023-03-03] MEDS ORDERED: ACETAMINOPHEN 325 MG TABLET PO PRN ×2 (14:15)
[2023-03-03] MEDS ORDERED: BISACODYL 5 MG TABLET.DR (DULCOLAX) GT PRN (14:15)
[2023-03-03] MEDS ORDERED: NALOXONE HCL 0.4 MG/ML AMP (NARCAN) IVP PRN (14:15)
[2023-03-03] MEDS ORDERED: MILK OF MAGNESIA 30 ML UDC PO PRN (14:15)
[2023-03-03 16:00] VITALS: BP_SYST 124; BP_SYST 125
[2023-03-03] MEDS: D5/0.45 NS 1,000 ML IV SCH ×2 (16:12→22:00)
[2023-03-03] MEDS: PIPERACILLIN/TAZO 2.25G/DEX-IS 50 ML IV SCH ×2 (17:50→23:34)
[2023-03-03] MEDS ORDERED: BALSAM PERU/CASTOR OIL 56.7 GM OINT...G. TP SCH (18:00)
[2023-03-03] MEDS: MIRTAZAPINE 15 MG TABLET PO SCH (20:34)
[2023-03-03] MEDS: CARVEDILOL 12.5 MG TABLET (COREG) PO SCH (20:36)
[2023-03-03] MEDS: BALSAM PERU/CASTOR OIL 56.7 GM OINT...G. TP SCH (20:36)
[2023-03-03 22:01] VITALS: BP_SYST 110
[2023-03-04 00:59] VITALS: BP_SYST 125
[2023-03-04 02:36] VITALS: BP_SYST 110
[2023-03-04] MEDS: D5/0.45 NS 1,000 ML IV SCH (06:15)
[2023-03-04] MEDS: PIPERACILLIN/TAZO 2.25G/DEX-IS 50 ML IV SCH ×2 (06:16→20:02)
[2023-03-04 07:50] LABS: HEMATOCRIT 25.4 % (36-54); MEAN CORPUSCULAR HEMOGLOBIN 28 pg (27-31); MEAN CORPUSCULAR HGB CONC 31 % (32-36); MEAN CORPUSCULAR VOLUME 89 fL (79.0-98.0); RED BLOOD CELL COUNT(AUTO) 2.87 MIL/uL (4.2-6.2); RED CELL DISTRIBUTION WIDTH 18.1 % (9.0-15.0); WHITE BLOOD COUNT (AUTO) 25.5 K/uL (4.8-10.8)
[2023-03-04 08:00] VITALS: BP_SYST 114
[2023-03-04 08:00] LABS: PLATELET COUNT (AUTO) 827 K/uL (130-430)
[2023-03-04 08:05] LABS: ALBUMIN 1.7 g/dL (3.4-4.8); CREATININE 3.59 mg/dL (0.55-1.30); TOTAL BILIRUBIN 0.4 mg/dL (0.0-1.0)
[2023-03-04 08:57] LABS: BAND % (MANUAL) 3 % (0-6); BASOPHILS % (MANUAL) 0 % (0-2); EOSINOPHILS % (MANUAL) 0 % (0-7); LYMPHOCYTES % (MANUAL) 5 % (20-46); MONOCYTES % (MANUAL) 2 % (0-11)
[2023-03-04] MEDS ORDERED: NON-FORMULARY MEDICATION (Lactobacillus Acidophilus (Acidophilus) 1 TAB) PO SCH (09:00)
[2023-03-04] MEDS ORDERED: COLLAGENASE 30 GM OINT Non-Formulary 30 GM OINT..GM. TP SCH (09:00)
[2023-03-04] MEDS ORDERED: ZINC GLUCONATE PO SCH (09:00)
[2023-03-04] MEDS: LACTOBACILLUS RHAMNOSUS GG 1 CAP CAPSULE PO SCH (10:24)
[2023-03-04] MEDS: MULTIVITAMINS TAB 1 TABLET PO SCH (10:25)
[2023-03-04] MEDS: ASCORBIC ACID 500 MG TABLET PO SCH (10:25)
[2023-03-04] MEDS: SIMVASTATIN 10 MG TABLET PO SCH (10:25)
[2023-03-04] MEDS: CARVEDILOL 12.5 MG TABLET (COREG) PO SCH ×2 (10:26→21:00)
[2023-03-04] MEDS: D5W 1,000 ML IV SCH ×2 (11:39→21:15)
[2023-03-04 11:57] VITALS: BP_SYST 105
[2023-03-04] MEDS ORDERED: VANCOMYCIN HCL 1,000 MG in NS 250 ML IV ONE (13:00)
[2023-03-04] MEDS ORDERED: POTASSIUM CHLORIDE 20 MEQ/PKT PACKET GT ONE (14:00)
[2023-03-04 16:58] VITALS: BP_SYST 100
[2023-03-04 19:30] VITALS: BP_SYST 106
[2023-03-04] MEDS: MIRTAZAPINE 15 MG TABLET PO SCH (20:59)
[2023-03-04] MEDS: BALSAM PERU/CASTOR OIL 56.7 GM OINT...G. TP SCH (21:01)
[2023-03-05] VITALS: BP_SYST 108
[2023-03-05] MEDS: PIPERACILLIN/TAZO 2.25G/DEX-IS 50 ML IV SCH ×4 (01:29→17:27)
[2023-03-05] MEDS: D5W 1,000 ML IV SCH ×2 (06:28→17:27)
[2023-03-05 07:28] LABS: BASOPHILS # (AUTO) 0.1 K/uL (0.0-0.2); BASOPHILS % (AUTO) 0.3 % (0.0-2.0); EOSINOPHILS # (AUTO) 0.3 K/uL (0.0-0.4); EOSINOPHILS % (AUTO) 1.3 % (0.0-4.0); HEMATOCRIT 23.4 % (36-54); HEMOGLOBIN 7.1 g/dL (14.0-18.0); LYMPHOCYTES # (AUTO) 2.6 K/uL (1.0-5.5); LYMPHOCYTES % (AUTO) 13.1 % (20.5-51.5); MEAN CORPUSCULAR HEMOGLOBIN 27 pg (27-31); MEAN CORPUSCULAR HGB CONC 30 % (32-36); MEAN CORPUSCULAR VOLUME 90 fL (79.0-98.0); MONOCYTES # (AUTO) 0.9 K/uL (0.0-1.0); MONOCYTES % (AUTO) 4.7 % (1.7-9.3); NEUTROPHILS # (AUTO) 15.8 K/uL (1.8-7.7); NEUTROPHILS % (AUTO) 80.6 % (40.0-70.0); PLATELET COUNT (AUTO) 722 K/uL (130-430); RED CELL DISTRIBUTION WIDTH 18.5 % (9.0-15.0); WHITE BLOOD COUNT (AUTO) 19.6 K/uL (4.8-10.8)
[2023-03-05 08:00] VITALS: BP_SYST 125
[2023-03-05 08:26] LABS: ALBUMIN 1.6 g/dL (3.4-4.8); CALCIUM 8.8 mg/dL (8.4-11.0); CREATININE 3.36 mg/dL (0.55-1.30); TOTAL BILIRUBIN 0.4 mg/dL (0.0-1.0)
[2023-03-05] MEDS: LACTOBACILLUS RHAMNOSUS GG 1 CAP CAPSULE PO SCH (09:39)
[2023-03-05] MEDS: ASCORBIC ACID 500 MG TABLET PO SCH (09:39)
[2023-03-05] MEDS: MULTIVITAMINS TAB 1 TABLET PO SCH (09:39)
[2023-03-05] MEDS: SIMVASTATIN 10 MG TABLET PO SCH (09:40)
[2023-03-05] MEDS: CARVEDILOL 12.5 MG TABLET (COREG) PO SCH ×2 (09:40→21:57)
[2023-03-05 12:00] VITALS: BP_SYST 118
[2023-03-05 16:43] VITALS: BP_SYST 121
[2023-03-05 19:58] VITALS: BP_SYST 120
[2023-03-05] MEDS: MIRTAZAPINE 15 MG TABLET PO SCH (21:56)
[2023-03-05] MEDS: BALSAM PERU/CASTOR OIL 56.7 GM OINT...G. TP SCH (21:57)
[2023-03-06] MEDS: PIPERACILLIN/TAZO 2.25G/DEX-IS 50 ML IV SCH ×5 (00:09→23:26)
[2023-03-06 00:45] VITALS: BP_SYST 105
[2023-03-06] MEDS: D5W 1,000 ML IV SCH ×3 (03:18→23:26)
[2023-03-06 05:50] LABS: BASOPHILS % (AUTO) 0.2 % (0.0-2.0); EOSINOPHILS # (AUTO) 0.2 K/uL (0.0-0.4); EOSINOPHILS % (AUTO) 1.2 % (0.0-4.0); LYMPHOCYTES # (AUTO) 2.2 K/uL (1.0-5.5); LYMPHOCYTES % (AUTO) 12.3 % (20.5-51.5); MEAN CORPUSCULAR HEMOGLOBIN 28 pg (27-31); MEAN CORPUSCULAR HGB CONC 31 % (32-36); MEAN CORPUSCULAR VOLUME 88 fL (79.0-98.0); MONOCYTES # (AUTO) 0.7 K/uL (0.0-1.0); MONOCYTES % (AUTO) 4.1 % (1.7-9.3); PLATELET COUNT (AUTO) 633 K/uL (130-430); RED BLOOD CELL COUNT(AUTO) 2.19 MIL/uL (4.2-6.2); RED CELL DISTRIBUTION WIDTH 18.5 % (9.0-15.0); WHITE BLOOD COUNT (AUTO) 18.3 K/uL (4.8-10.8)
[2023-03-06 06:35] LABS: ALBUMIN 1.4 g/dL (3.4-4.8); CALCIUM 8.1 mg/dL (8.4-11.0); CREATININE 3.16 mg/dL (0.55-1.30); TOTAL BILIRUBIN 0.3 mg/dL (0.0-1.0); VANCOMYCIN,RANDOM 25.4 ug/mL
[2023-03-06 06:39] LABS: TOTAL IRON BIND. CAPACITY 143 ug/dL (250-450)
[2023-03-06 07:48] LABS: HEMATOCRIT 19.3 % (36-54)
[2023-03-06 07:49] LABS: NEUTROPHILS % (AUTO) 82.2 % (40.0-70.0)
[2023-03-06 08:00] VITALS: BP_SYST 104
[2023-03-06] MEDS: ASCORBIC ACID 500 MG TABLET PO SCH (09:00)
[2023-03-06] MEDS: LACTOBACILLUS RHAMNOSUS GG 1 CAP CAPSULE PO SCH (09:00)
[2023-03-06] MEDS: MULTIVITAMINS TAB 1 TABLET PO SCH (09:00)
[2023-03-06] MEDS: SIMVASTATIN 10 MG TABLET PO SCH (09:00)
[2023-03-06] MEDS: CARVEDILOL 12.5 MG TABLET (COREG) PO SCH ×2 (09:00→20:39)
[2023-03-06 11:48] VITALS: BP_SYST 107
[2023-03-06 15:55] VITALS: BP_SYST 101
[2023-03-06 20:00] VITALS: BP_SYST 117
[2023-03-06] MEDS: MIRTAZAPINE 15 MG TABLET PO SCH (20:39)
[2023-03-06] MEDS: BALSAM PERU/CASTOR OIL 56.7 GM OINT...G. TP SCH (20:40)
[2023-03-07 02:17] VITALS: BP_SYST 96
[2023-03-07] MEDS: PIPERACILLIN/TAZO 2.25G/DEX-IS 50 ML IV SCH ×4 (05:41→23:28)
[2023-03-07 08:30] VITALS: BP_SYST 113
[2023-03-07] MEDS: LACTOBACILLUS RHAMNOSUS GG 1 CAP CAPSULE PO SCH (09:00)
[2023-03-07] MEDS: MULTIVITAMINS TAB 1 TABLET PO SCH (09:00)
[2023-03-07] MEDS: ASCORBIC ACID 500 MG TABLET PO SCH (09:00)
[2023-03-07 09:06] LABS: BASOPHILS % (AUTO) 0.2 % (0.0-2.0); EOSINOPHILS # (AUTO) 0.2 K/uL (0.0-0.4); EOSINOPHILS % (AUTO) 1.3 % (0.0-4.0); HEMATOCRIT 30.6 % (36-54); LYMPHOCYTES # (AUTO) 2.2 K/uL (1.0-5.5); LYMPHOCYTES % (AUTO) 14.8 % (20.5-51.5); MEAN CORPUSCULAR HEMOGLOBIN 29 pg (27-31); MEAN CORPUSCULAR HGB CONC 33 % (32-36); MEAN CORPUSCULAR VOLUME 90 fL (79.0-98.0); MONOCYTES # (AUTO) 0.6 K/uL (0.0-1.0); MONOCYTES % (AUTO) 4.2 % (1.7-9.3); NEUTROPHILS # (AUTO) 11.6 K/uL (1.8-7.7); NEUTROPHILS % (AUTO) 79.5 % (40.0-70.0); PLATELET COUNT (AUTO) 511 K/uL (130-430); RED CELL DISTRIBUTION WIDTH 17.9 % (9.0-15.0); WHITE BLOOD COUNT (AUTO) 14.6 K/uL (4.8-10.8)
[2023-03-07] MEDS: D5W 1,000 ML IV SCH (09:15)
[2023-03-07 09:20] LABS: CALCIUM 8.4 mg/dL (8.4-11.0); CREATININE 3.03 mg/dL (0.55-1.30); VANCOMYCIN,RANDOM 20.4 ug/mL
[2023-03-07] MEDS: SIMVASTATIN 10 MG TABLET PO SCH (10:01)
[2023-03-07] MEDS: CARVEDILOL 12.5 MG TABLET (COREG) PO SCH ×2 (10:01→22:03)
[2023-03-07 12:00] VITALS: BP_SYST 101
[2023-03-07 16:00] VITALS: BP_SYST 111
[2023-03-07] MEDS: EPOETIN ALFA-EPBX 3,000 UNITS/ML VIAL SUBCUT SCH (17:00)
[2023-03-07] MEDS ORDERED: HYDROmorphone 1 MG/ML INJ. CARTRIDGE ONE (19:09)
[2023-03-07] MEDS ORDERED: fentaNYL CITRATE/PF 100 MCG/2 ML AMP ONE (19:12)
[2023-03-07] MEDS ORDERED: NS IRRIG SOLN 1000 ML IR ONE (19:12)
[2023-03-07] MEDS ORDERED: GLYCOPYRROLATE 0.2 MG/ML VIAL ONE (19:12)
[2023-03-07] MEDS ORDERED: ROCURONIUM BROMIDE 10 MG/ML (ZEMURON) ONE (19:12)
[2023-03-07] MEDS ORDERED: NS 1000 ML IV.SOLN IV ONE (19:12)
[2023-03-07] MEDS ORDERED: ETOMIDATE 20 MG/ 10 ML VIAL (AMIDATE) ONE (19:12)
[2023-03-07] MEDS ORDERED: SEVOFLURANE 15 MIN GAS INH ONE (19:12)
[2023-03-07] MEDS ORDERED: ONDANSETRON HCL 4 MG/2 ML VIAL ONE (19:12)
[2023-03-07] MEDS ORDERED: WATER FOR IRRIGATION,STERILE 1,000 ML IRRIG.SOLN IR ONE (19:12)
[2023-03-07] MEDS ORDERED: BUPIVACAINE /PF 0.25% 30 ML VIAL INJ ONE (19:12)
[2023-03-07] MEDS ORDERED: PHENYLEPHRINE HCL 10 MG/ML VIAL (NEOSYNEPHRINE) ONE (19:12)
[2023-03-07] MEDS ORDERED: HYDROmorphone 2 MG/ML VIAL IVP PRN (19:15)
[2023-03-07] MEDS ORDERED: ONDANSETRON HCL 4 MG/2 ML VIAL IVP PRN (19:15)
[2023-03-07] MEDS ORDERED: LR 1,000 ML IV SCH (19:15)
[2023-03-07 20:00] VITALS: BP_SYST 115
[2023-03-07] MEDS: BALSAM PERU/CASTOR OIL 56.7 GM OINT...G. TP SCH (22:03)
[2023-03-07] MEDS: MIRTAZAPINE 15 MG TABLET PO SCH (22:03)
[2023-03-08] VITALS: BP_SYST 112
[2023-03-08 04:03] VITALS: BP_SYST 112
[2023-03-08] MEDS: PIPERACILLIN/TAZO 2.25G/DEX-IS 50 ML IV SCH ×4 (05:08→19:23)
[2023-03-08] MEDS: D5W 1,000 ML IV SCH ×2 (05:08→17:04)
[2023-03-08] MEDS: ASCORBIC ACID 500 MG TABLET PO SCH (10:36)
[2023-03-08] MEDS: LACTOBACILLUS RHAMNOSUS GG 1 CAP CAPSULE PO SCH (10:36)
[2023-03-08] MEDS: SIMVASTATIN 10 MG TABLET PO SCH (10:36)
[2023-03-08] MEDS: MULTIVITAMINS TAB 1 TABLET PO SCH (10:40)
[2023-03-08] MEDS: CARVEDILOL 12.5 MG TABLET (COREG) PO SCH ×2 (10:40→20:39)
[2023-03-08] MEDS: HYDROcodone/ACETAMIN 5-325 MG TAB (NORCO/ VICODIN) PO PRN (10:42)
[2023-03-08] MEDS: BALSAM PERU/CASTOR OIL 56.7 GM OINT...G. TP SCH ×2 (10:50→20:39)
[2023-03-08 11:49] VITALS: BP_SYST 116
[2023-03-08 15:22] VITALS: BP_SYST 98
[2023-03-08] MEDS ORDERED: VANCOMYCIN HCL 500 MG in NS 100 ML IV ONE (16:00)
[2023-03-08 16:59] VITALS: BP_SYST 122
[2023-03-08 20:00] VITALS: BP_SYST 104
[2023-03-08] MEDS: MIRTAZAPINE 15 MG TABLET PO SCH (20:39)
[2023-03-09] MEDS: PIPERACILLIN/TAZO 2.25G/DEX-IS 50 ML IV SCH ×4 (00:07→18:36)
[2023-03-09] MEDS: D5W 1,000 ML IV SCH ×3 (00:08→21:31)
[2023-03-09 00:20] VITALS: BP_SYST 107
[2023-03-09 05:11] LABS: BASOPHILS # (AUTO) 0.1 K/uL (0.0-0.2); BASOPHILS % (AUTO) 0.5 % (0.0-2.0); EOSINOPHILS # (AUTO) 0.2 K/uL (0.0-0.4); EOSINOPHILS % (AUTO) 1.7 % (0.0-4.0); HEMATOCRIT 23.6 % (36-54); HEMOGLOBIN 7.9 g/dL (14.0-18.0); LYMPHOCYTES # (AUTO) 1.6 K/uL (1.0-5.5); MEAN CORPUSCULAR HEMOGLOBIN 30 pg (27-31); MEAN CORPUSCULAR HGB CONC 33 % (32-36); MEAN CORPUSCULAR VOLUME 90 fL (79.0-98.0); MONOCYTES # (AUTO) 0.6 K/uL (0.0-1.0); NEUTROPHILS # (AUTO) 9.1 K/uL (1.8-7.7); NEUTROPHILS % (AUTO) 78.8 % (40.0-70.0); PLATELET COUNT (AUTO) 539 K/uL (130-430); RED BLOOD CELL COUNT(AUTO) 2.64 MIL/uL (4.2-6.2); RED CELL DISTRIBUTION WIDTH 18.4 % (9.0-15.0); WHITE BLOOD COUNT (AUTO) 11.6 K/uL (4.8-10.8)
[2023-03-09 05:28] LABS: CALCIUM 7.4 mg/dL (8.4-11.0); CREATININE 2.84 mg/dL (0.55-1.30); VANCOMYCIN,RANDOM 21.7 ug/mL
[2023-03-09 08:00] VITALS: BP_SYST 129
[2023-03-09] MEDS: CARVEDILOL 12.5 MG TABLET (COREG) PO SCH ×2 (10:09→21:29)
[2023-03-09] MEDS: LACTOBACILLUS RHAMNOSUS GG 1 CAP CAPSULE PO SCH (10:15)
[2023-03-09] MEDS: SIMVASTATIN 10 MG TABLET PO SCH (10:15)
[2023-03-09] MEDS: ASCORBIC ACID 500 MG TABLET PO SCH (10:15)
[2023-03-09] MEDS: MULTIVITAMINS TAB 1 TABLET PO SCH (10:15)
[2023-03-09] MEDS: BALSAM PERU/CASTOR OIL 56.7 GM OINT...G. TP SCH ×2 (10:15→21:30)
[2023-03-09 12:00] VITALS: BP_SYST 121
[2023-03-09] MEDS ORDERED: POTASSIUM CHLORIDE 20 MEQ/PKT PACKET GT ONE (12:00)
[2023-03-09] MEDS: HYDROcodone/ACETAMIN 5-325 MG TAB (NORCO/ VICODIN) PO PRN (16:20)
[2023-03-09 16:51] VITALS: BP_SYST 127
[2023-03-09 19:16] VITALS: BP_SYST 130
[2023-03-09 20:00] VITALS: BP_SYST 125
[2023-03-09] MEDS: MIRTAZAPINE 15 MG TABLET PO SCH (21:29)
[2023-03-10 01:05] VITALS: BP_SYST 118
[2023-03-10] MEDS: PIPERACILLIN/TAZO 2.25G/DEX-IS 50 ML IV SCH (01:49)
[2023-03-10 07:15] LABS: ALBUMIN 1.6 g/dL (3.4-4.8); CALCIUM 8.2 mg/dL (8.4-11.0); CREATININE 2.64 mg/dL (0.55-1.30); TOTAL BILIRUBIN 0.3 mg/dL (0.0-1.0); VANCOMYCIN,RANDOM 17.4 ug/mL
[2023-03-10 07:49] LABS: BASOPHILS % (AUTO) 0.3 % (0.0-2.0); EOSINOPHILS # (AUTO) 0.2 K/uL (0.0-0.4); EOSINOPHILS % (AUTO) 1.6 % (0.0-4.0); HEMATOCRIT 25.8 % (36-54); HEMOGLOBIN 8.5 g/dL (14.0-18.0); LYMPHOCYTES # (AUTO) 1.9 K/uL (1.0-5.5); LYMPHOCYTES % (AUTO) 15.1 % (20.5-51.5); MEAN CORPUSCULAR HEMOGLOBIN 30 pg (27-31); MEAN CORPUSCULAR HGB CONC 33 % (32-36); MEAN CORPUSCULAR VOLUME 89 fL (79.0-98.0); MONOCYTES # (AUTO) 0.7 K/uL (0.0-1.0); MONOCYTES % (AUTO) 5.6 % (1.7-9.3); NEUTROPHILS # (AUTO) 9.5 K/uL (1.8-7.7); NEUTROPHILS % (AUTO) 77.4 % (40.0-70.0); PLATELET COUNT (AUTO) 612 K/uL (130-430); RED BLOOD CELL COUNT(AUTO) 2.88 MIL/uL (4.2-6.2); RED CELL DISTRIBUTION WIDTH 18.4 % (9.0-15.0); WHITE BLOOD COUNT (AUTO) 12.3 K/uL (4.8-10.8)
[2023-03-10 09:07] VITALS: BP_SYST 137
[2023-03-10] MEDS: LACTOBACILLUS RHAMNOSUS GG 1 CAP CAPSULE PO SCH (09:42)
[2023-03-10] MEDS: SIMVASTATIN 10 MG TABLET PO SCH (09:42)
[2023-03-10] MEDS: CARVEDILOL 12.5 MG TABLET (COREG) PO SCH ×2 (09:43→21:36)
[2023-03-10] MEDS: ASCORBIC ACID 500 MG TABLET PO SCH (09:43)
[2023-03-10] MEDS: MULTIVITAMINS TAB 1 TABLET PO SCH (09:44)
[2023-03-10] MEDS: BALSAM PERU/CASTOR OIL 56.7 GM OINT...G. TP SCH ×2 (11:17→21:37)
[2023-03-10] MEDS: D5W 1,000 ML IV SCH ×2 (11:19→17:14)
[2023-03-10 11:41] VITALS: BP_SYST 134
[2023-03-10] MEDS: CEFEPIME 2 GM in D5W 100 ML IV SCH (16:15)
[2023-03-10 16:33] VITALS: BP_SYST 126
[2023-03-10] MEDS: EPOETIN ALFA-EPBX 3,000 UNITS/ML VIAL SUBCUT SCH (17:06)
[2023-03-10 20:00] VITALS: BP_SYST 129
[2023-03-10] MEDS: MIRTAZAPINE 15 MG TABLET PO SCH (21:37)
[2023-03-11] MEDS: D5W 1,000 ML IV SCH (06:13)
[2023-03-11 06:20] VITALS: BP_SYST 128
[2023-03-11 09:05] VITALS: BP_SYST 123
[2023-03-11] MEDS: MULTIVITAMINS TAB 1 TABLET PO SCH (09:59)
[2023-03-11] MEDS: SIMVASTATIN 10 MG TABLET PO SCH (10:00)
[2023-03-11] MEDS: ASCORBIC ACID 500 MG TABLET PO SCH (10:00)
[2023-03-11] MEDS: LACTOBACILLUS RHAMNOSUS GG 1 CAP CAPSULE PO SCH (10:00)
[2023-03-11] MEDS: CARVEDILOL 12.5 MG TABLET (COREG) PO SCH (10:01)
[2023-03-11] MEDS: BALSAM PERU/CASTOR OIL 56.7 GM OINT...G. TP SCH (10:02)
[2023-03-11] MEDS: CEFEPIME 2 GM in D5W 100 ML IV SCH (12:34)
[2023-03-11 13:33] VITALS: BP_SYST 119
[2023-03-11 15:23] VITALS: BP_SYST 114
== END 2023-03-11 15:40 | DRG 710 ==
LOC: SED 08:52 → STU 11:56
PROVIDERS: ADMIT Family Medicine; ATTEND Family Medicine
PROC: 0JB70ZZ Excision of Back Subcutaneous Tissue and Fascia, Open Approach (ICD-10-PCS; 2023-03-07)
PROC: 0KBN0ZZ Excision of Right Hip Muscle, Open Approach (ICD-10-PCS; 2023-03-07)
PROC: 30233N1 Transfusion of Nonautologous Red Blood Cells into Peripheral Vein, Percutaneous Approach (ICD-10-PCS; 2023-03-07)
PROC: 0KBN0ZZ Excision of Right Hip Muscle, Open Approach (ICD-10-PCS; principal; 2023-03-07 16:50)
PROC: 05HY33Z Insertion of Infusion Device into Upper Vein, Percutaneous Approach (ICD-10-PCS; 2023-03-09)
PROC: B54MZZA Ultrasonography of Right Upper Extremity Veins, Guidance (ICD-10-PCS; 2023-03-09)
DX: A41.9 Sepsis, unspecified organism (principal); N17.0 Acute kidney failure with tubular necrosis; E43 Unspecified severe protein-calorie malnutrition; L89.104 Pressure ulcer of unspecified part of back, stage 4; L89.150 Pressure ulcer of sacral region, unstageable; L89.893 Pressure ulcer of other site, stage 3; J18.9 Pneumonia, unspecified organism; E86.0 Dehydration; L89.210 Pressure ulcer of right hip, unstageable; L89.224 Pressure ulcer of left hip, stage 4; F03.90 Unspecified dementia, unspecified severity, without behavioral disturbance, psychotic disturbance, mood disturbance, and anxiety; D64.9 Anemia, unspecified; R65.20 Severe sepsis without septic shock; I12.9 Hypertensive chronic kidney disease with stage 1 through stage 4 chronic kidney disease, or unspecified chronic kidney disease; N18.4 Chronic kidney disease, stage 4 (severe); N39.0 Urinary tract infection, site not specified; Z20.822 Contact with and (suspected) exposure to COVID-19; Z66 Do not resuscitate; B96.5 Pseudomonas (aeruginosa) (mallei) (pseudomallei) as the cause of diseases classified elsewhere; Z79.899 Other long term (current) drug therapy; Z93.1 Gastrostomy status; Z79.1 Long term (current) use of non-steroidal anti-inflammatories (NSAID); Z74.01 Bed confinement status; Z86.73 Personal history of transient ischemic attack (TIA), and cerebral infarction without residual deficits; Z68.20 Body mass index [BMI] 20.0-20.9, adult
CPT/HCPCS: 36415; 71045; 80048; 80053; 80202; 81000; 82272; 83540; 83550; 83605; 83690; 83735; 83880; 85007; 85025; 85027; 85610-TC; 85730-TC; 86886; 86900; 86901; 86920; 87040; 87081; 87086; 88304; 93005; 96361; 96365; 96368; 99291; C1751; G0378; J0692; J1170; J2370; J2405; J2543; J3010; J3370; J3490; J7030; J7050; J7060; J7120; P9021; Q5106